=== PATIENT | female | born 1940 | race Caucasian/White ===

== ENCOUNTER 2018-11-24 05:25 | Outpatient (CLI) | payer MEDICARE, BC ==
[2018-11-24 07:52] LABS: BASOPHILS 0.6 % (0-2); EOSINOPHILS 2.9 % (0-7); HEMATOCRIT 41.1 % (36.0-48.0); HEMOGLOBIN 14.1 g/dL (12-16); IMMATURE GRANULOCYTES 0.1 % (0-5); LYMPHOCYTES 22.3 % (15-50); MCH 32.4 pg (26.0-34.0); MCHC 34.3 g/dL (31.0-37.0); MCV 94.5 fL (80.0-100.0); MONOCYTES 7.5 % (2-11); NEUTROPHILS 66.6 % (40-80); PLATELET COUNT 135 10x3/uL (130-400); RBC 4.35 10x6/uL (4.00-5.40); RDW 13.8 % (11.5-14.5); WBC 9.6 10x3/uL (4.8-10.8)
[2018-11-24 08:13] LABS: ANION GAP 15.6 mmol/L (8-16); CALCIUM 9.8 mg/dL (8.5-10.1); CARBON DIOXIDE 24.6 mmol/L (21.0-32.0); CREATININE - SERUM 1.1 mg/dL (0.6-1.3); POTASSIUM - SERUM 4.2 mmol/L (3.5-5.1)
[2018-11-24 08:20] LABS: APTT 31.7 SECONDS (22.8-39.4); INR 1.15 (0.85-1.17); PROTIME 14.2 SECONDS (11.6-15.0)
--- NOTE | 2018-11-24 12:55 | NUR ---
PIV DC'D WITH TIP INTACT. PATIENT AMBULATES TO BATHROOM AND VOIDS IN TOILET WITHOUT DIFFICULTY. DRESSING IN PERSONAL CLOTHING
--- NOTE | 2018-11-24 13:08 | NUR ---
DISCHARGE INSTRUCTIONS REVIEWED WITH PATIENT AND FAMILY. DISCHARGED HOME VIA WHEELCHAIR TO PRIVATE VEHICLE WITH FAMILY
== END 2018-11-24 13:08 | disposition home or self-care (01) ==
LOC: D.SP 05:25 → D.CT 08:00 → D.SP 08:00
PROVIDERS: Radiology Diagnostic Radiology
DX: K74.60 Unspecified cirrhosis of liver (principal)

== ENCOUNTER → 2018-12-06 05:45 | Outpatient (CLI) | payer MEDICARE, BC ==
[~2018-12-06 05:45] MED LIST: ALDACTONE25 MG PO; ASPIRIN81 MG PO; BASAGLAR K100 UNIT/1 SC; COREG6.25 MG PO; FUROSEMIDE20 MG PO; HUMALOG MIX 75/23 ML SC; HYDROCODON-ACE1 EAC2 PO; LISINOPRIL-HCT1 EAC8 PO; ORACEA40 MG PO; ZOCOR20 MG PO
[2018-12-27 07:37] VITALS: BMI 28.6
== END | disposition home or self-care (01) ==
LOC: D.US 05:45
DX: R93.89 Abnormal findings on diagnostic imaging of other specified body structures (principal); K82.8 Other specified diseases of gallbladder

== ENCOUNTER → 2018-12-27 06:12 | Day surgery (SDC) | payer MEDICARE, BC ==
[~2018-12-27] VITALS: Ht 165.1 cm; Wt 78.2 kg
--- NOTE | ~2018-12-27 | OP ---
PATIENT NAME: KENROY MURRAY MEDICAL RECORD: [id number] :38 LOCATION:[facility] ADMISSION DATE: SURGEON: SERAFIN SPARROW DO DATE OF OPERATION: 12/27/2018 PROCEDURE: EGD with biopsies. INDICATIONS FOR PROCEDURE: Cirrhosis, altered bowel function, dark stools, and recent weight loss. SCOPE: Olympus video gastroscope. MEDICATIONS: Propofol 140 mg IV per anesthesia. ESTIMATED BLOOD LOSS: Minimal. COMPLICATIONS: None. FINDINGS: Informed consent was given. The patient was made comfortable with the above medication. After reaching an adequate level of sedation by slow IV push, the patient was placed on her left side. The endoscope was advanced under direct visualization through the mouth to the second portion of the duodenum. The upper and middle thirds of the esophagus appeared normal. In the distal third of the esophagus, there were grade I esophageal varices without bleeding stigmata. At the GE junction, there was evidence of LA class A reflux-induced esophagitis. The endoscope was advanced beyond the GE junction into the stomach and retroflexed to view the cardia and fundus. There were no obvious gastric varices present. There was no obvious hiatal hernia. The endoscope was advanced throughout the body and antrum of the stomach. There was diffuse moderate portal hypertensive gastropathy present. There was no active bleeding. There were no ulcers or erosions seen within the stomach. The endoscope was advanced beyond the pylorus into the duodenum where there was evidence of portal hypertensive duodenopathy in the duodenal bulb. The second portion of the duodenum appeared normal. The endoscope was then withdrawn from the patient. The patient tolerated the procedure well and there were no complications. IMPRESSION: 1. Grade I esophageal varices without bleeding stigmata. 2. LA class A reflux-induced esophagitis. 3. Portal hypertensive gastropathy and duodenopathy. PLAN AND RECOMMENDATIONS: 1. Discharge home when recovery parameters are met. 2. Follow up biopsy specimen results. 3. Continue current diet, which should consist of a low sodium diet. 4. Continue current medications. 5. A 40 mg Protonix or equivalent PPI will be given for 60 days. 6. Repeat EGD in 1 year for esophageal variceal surveillance. TRANSINT:[id number] Voice Confirmation ID: [id number] DOCUMENT ID: [id number] OPERATIVE REPORT [id number] KENROY MURRAY SERAFIN SPARROW DO CC: [id number] DICTATION DATE: 12/27/18 0842 SLEEVE SEPARATOR: 12/27/18 1011 REG [facility] [address] [id number]
[2018-12-27 06:45] LABS: HEMATOCRIT 36.6 % (36.0-48.0); HEMOGLOBIN 12.7 g/dL (12-16); MCH 32.6 pg (26.0-34.0); MCHC 34.7 g/dL (31.0-37.0); MCV 93.8 fL (80.0-100.0); MEAN PLATELET VOLUME 11.6 fL (7.4-10.4); RBC 3.9 10x6/uL (4.00-5.40); RDW 13.6 % (11.5-14.5); WBC 8.6 10x3/uL (4.8-10.8)
[2018-12-27 06:51] LABS: ANION GAP 14.2 mmol/L (8-16); CALCIUM 9.7 mg/dL (8.5-10.1); POTASSIUM - SERUM 4.2 mmol/L (3.5-5.1)
[2018-12-27 07:37] VITALS: BP 131/61; Ht 165.1 cm; Wt 78.2 kg
== END | disposition home or self-care (01) ==
LOC: D.OPS 12-13 07:30
PROVIDERS: Anesthesiology; ATTEND Internal Medicine Gastroenterology
DX: K74.60 Unspecified cirrhosis of liver (principal); I85.00 Esophageal varices without bleeding; K21.0 Gastro-esophageal reflux disease with esophagitis; K76.6 Portal hypertension; K31.89 Other diseases of stomach and duodenum; Z01.812 Encounter for preprocedural laboratory examination

== ENCOUNTER → 2019-01-25 10:40 | Outpatient (CLI) | payer MEDICARE, BC ==
[2018-12-27 07:37] VITALS: BMI 28.6
[2019-01-25 11:14] LABS: BASOPHILS 0.8 % (0-2); EOSINOPHILS 2.6 % (0-7); HEMATOCRIT 34.4 % (36.0-48.0); HEMOGLOBIN 11.6 g/dL (12-16); IMMATURE GRANULOCYTES 0.1 % (0-5); LYMPHOCYTES 18.8 % (15-50); MCH 32.1 pg (26.0-34.0); MCHC 33.7 g/dL (31.0-37.0); MCV 95.3 fL (80.0-100.0); MEAN PLATELET VOLUME 11.5 fL (7.4-10.4); MONOCYTES 6.5 % (2-11); NEUTROPHILS 71.2 % (40-80); PLATELET COUNT 120 10x3/uL (130-400); RBC 3.61 10x6/uL (4.00-5.40); RDW 13.7 % (11.5-14.5); WBC 7.7 10x3/uL (4.8-10.8)
== END | disposition home or self-care (01) ==
LOC: D.LAB 12-14 08:30
PROVIDERS: ATTEND Internal Medicine Gastroenterology
DX: K92.1 Melena (principal); R19.4 Change in bowel habit